=== PATIENT | male | born 1985 | race Caucasian/White ===

== ENCOUNTER 2021-02-20 00:13 | Emergency (ER) | payer OTHER ==
[~2021-02-20] VITALS: Ht 177.8 cm; Wt 72.6 kg
--- NOTE | ~2021-02-20 | EMS ---
[address] [address] EMS Patient Care Report Name: STACY STEPHENS Room #: DEP JOVAN Vyas#: [id number] Admission: 02/20/21 Attend Phys: Discharge: 02/20/21 Date of : 83 Report #: [id number] THIS REPORT FOR: //name// Report Transmitted: 02/20/2021 23:05 EMS Care Summary [place], [place]/[facility] Incident [id number] @ 02/19/2021 23:49 Incident Location [address] [place] [address] / [place] [address] Patient STACY STEPHENS Male, 35 Years 1985 Patient Address [address], [place] [address] Patient History Behavioral/Psychiatric Disorder,Alcohol Abuse, Patient Allergies No known allergies, Patient Medications None Reported, Chief Complaint etoh abuse Disposition Transported No Lights/[place] Dis[place] Reason Overdose/Poisoning/Ingestion Transported To [facility] Narrative pd state that they found pt. walking in the street alone wearing just a shirt and it is raining. pd state that pt. told them that he was off of his psych meds. pt. denied taking any kind of medicine and that he has been consuming "Fireball whisky" ad that he does not know where his pants or shoes and socks. [address] [address] EMS Patient Care Report Name: STACY STEHPENS Room #: DEP [facility]#: [id number] Admission: 02/20/21 Attend Phys: Discharge: 02/20/21 Date of : 83 Report #: [id number] pt. denied abusing any illicit drugs. pt. states his is cold and wet. pt. denied any other complaints or loc. pt. was ambulatory on scene with pd present. pt. was in no distress. pt. was able to follow most simple commands without too much difficulties but his speech was very slurred. pt. was wearing rain soaked t-shirt and nothing else. pt. slept during transport but was easily awakened. no change in pt. status enroute. Initial Vitals @00:08P: 79,R: 20,BP: 169/102,Pain: 0/10,GCS: 15,SpO2: 98,Revised Trauma: 12, @23:58P: 80,R: 20,BP: 160/112,Pain: 0/10,GCS: 15,Glucose: 145,SpO2: 96,Revised Trauma: 12, @00:03P: 78,R: 20,BP: 151/102,Pain: 0/10,GCS: 15,CO: 2,SpO2: 98,Revised Trauma: 12, Assessments @23:57MENTAL:No Abnormalities,SKIN:Cold,Pale,Other,HEENT:Head/Face: No Abnormalities,Eyes: No Abnormalities,Neck/Airway: No Abnormalities,LUNG SOUNDS:General: No Abnormalities,Left Upper: No Abnormalities,Right Upper: No Abnormalities,Left Lower: No Abnormalities,Right Lower: No Abnormalities,ABDOMEN:General: No Abnormalities,Left Upper: No Abnormalities,Right Upper: No Abnormalities,Left Lower: No Abnormalities,Right Lower: No Abnormalities,PELVIS//GI:No Abnormalities,EXTREMITIES:Left Arm: No Abnormalities,Right Arm: No Abnormalities,Left Leg: No Abnormalities,Right Leg: No Abnormalities,PULSE:NEURO:Slurred Speech,Abnormal Gait,Other, Impression Substance abuse Procedures @23:57ALS AssessmentResponse: Unchanged Timeline 23:48,Dispatch Notified 23:49,Dispatched 23:50,En Route 23:56,On Scene 23:57,At Patient 23:57,ALS Assessment,Response: Unchanged 23:58,BP: 160/112 M,PULSE: 80,RR: 20 R,SPO2: 96 Ox,ETCO2: ,B,PAIN: 0,GCS: 15, 00:03,BP: 151/102 M,PULSE: 78,RR: 20 R,SPO2: 98 Ox,ETCO2: ,BG: ,PAIN: 0,GCS: 15, 00:04,Depart Scene 00:08,BP: 169/102 M,PULSE: 79,RR: 20 R,SPO2: 98 Ox,ETCO2: ,BG: ,PAIN: 0,GCS: [facility] [address] [place] [address] EMS Patient Care Report Name: STACY STEPHENS Room #: DEP Lilliam#: [id number] Admission: 02/20/21 Attend Phys: Discharge: 02/20/21 Date of : 83 Report #: [id number] 15, 00:09,At Destination 00:20,Call Closed 23:48,Call Received Disclaimer [email or web address] Copyright 2020 [employer] This EMS Care Summary contains data elements from the applicable legal record (which may be displayed differently). It is designed to provide pertinent information for the following purposes: continuity of care, clinical quality, and state data reporting. The complete legal record is available to ED staff and administrators of the receiving hospital in [employer]'s Patient Tracker. All data is provided "as is."
[2021-02-20 01:27] LABS: AMP/METHAMP POSITIVE (Negative); BARBITURATES Negative (Negative); BENZODIAZEPINES POSITIVE (Negative); COCAINE Negative (Negative); METHADONE Negative (Negative); OPIATES Negative (Negative); PCP Negative (Negative)
[2021-02-20 02:22] VITALS: BP 154/78
== END 2021-02-20 02:24 | disposition home or self-care (01) ==
LOC: ER 00:13
PROVIDERS: Emergency Medicine
DX: F15.10 Other stimulant abuse, uncomplicated (principal); F12.10 Cannabis abuse, uncomplicated; F13.10 Sedative, hypnotic or anxiolytic abuse, uncomplicated